=== PATIENT | female | born 1980 | race Caucasian/White ===

== ENCOUNTER 2021-06-08 20:22 | Emergency (ER) | payer MEDICAID ==
[~2021-06-08] VITALS: Ht 157.5 cm; Wt 69.4 kg
[2021-06-08 20:30] VITALS: BP 124/90
--- NOTE | 2021-06-08 20:33 | NUR ---
TO LOBBY A/W BED AMBULATORY
--- NOTE | 2021-06-08 21:12 | NUR ---
PT AMBULATED TO BED 05.
--- NOTE | 2021-06-08 21:15 | NUR ---
PT BIB SELF FOR C/O VAGINAL AND PELVIC PAIN 10/10 X 1 DAY. PT REPORTS SHE HAS AN IUD, AND SHE CAN "SEE THE STRING" WHICH PT REPORTS IS NOT NORMAL. PT REPORTS LIGHT VAGINAL BLEEDING X 1 MONTH. PT DENIES S/SX OF UTI. PT REPORTS HX OF FIBOIDS. DENIES N/V/D, FEVER, CHILLS, CP OR SOB. HX: FIBROIDS ALLERGIES: RANITIDINE
--- NOTE | 2021-06-08 21:59 | NUR ---
Patient being evaluated by physician at bedside.
[2021-06-08 22:33] LABS: APPEARANCE,URINE CLEAR (CLEAR); BILIRUBIN,URINE NEGATIVE (NEGATIVE); BLOOD, URINE 3+ (NEGATIVE); COLOR,URINE YELLOW (YELLOW); LEUKOCYTE ESTERASE ,URINE TRACE (NEGATIVE); NITRITE, URINE NEGATIVE (NEGATIVE); PH,URINE 5.5 (5.0-9.0); UGLUCOSE NEGATIVE (NEGATIVE)
[2021-06-08] MEDS ORDERED: KETOROLAC 60 MG/2 ML VIAL IM ONE (22:40)
[2021-06-08 22:47] LABS: RBC,URINE 0-5 /HPF (0-5); WBC,URINE 0-5 /HPF (0-5)
[2021-06-08 22:59] VITALS: BP 114/64
[2021-06-08] MEDS ORDERED: cefTRIAXone 1,000 MG in LIDOCAINE MPF 1% 2.1 ML IM ONE (23:00)
[2021-06-08] MEDS ORDERED: cefTRIAXone 1,000 MG VIAL ONE (23:10)
[2021-06-08] MEDS ORDERED: LIDOCAINE MPF 1% 5 ML ONE (23:10)
--- NOTE | 2021-06-08 23:23 | NUR ---
Patient appears to be resting comfortably in bed. Vital Signs within normal limits. Respirations even and unlabored. BLANKET PROVIDED FOR COMFORT.
--- NOTE | 2021-06-08 23:33 | NUR ---
ULTRASOUND AT BEDSIDE.
--- NOTE | 2021-06-09 01:15 | NUR ---
Female [employer] accompanied female patient for Pelvic Exam. PT TOLERATED PROCEDURE WELL.
[2021-06-09] MEDS ORDERED: CEPH-588 PO (01:23)
== END 2021-06-09 01:37 | disposition home or self-care (01) ==
LOC: MED 20:22
DX: N39.0 Urinary tract infection, site not specified (principal); N93.9 Abnormal uterine and vaginal bleeding, unspecified; Z88.8 Allergy status to other drugs, medicaments and biological substances
CPT/HCPCS: 76856; 81001; 81025; 87086; 96372; 99284; J0696; J1885; J2001

== ENCOUNTER 2024-04-08 18:54 | Emergency (ER) | payer MEDICAID, OTHER ==
[~2024-04-08] VITALS: Ht 157.5 cm; Wt 63.5 kg
[~2024-04-08 18:54] MED LIST: CEPH-588 PO
[2024-04-08 18:56] VITALS: BP 110/70; PULSE 65; RESP 18; TEMP 97.4; O2SAT 96
[2024-04-08 19:52] LABS: ANION GAP 11.1 (8-16); CARBON DIOXIDE 27.4 mmol/L (21-32); CREATININE 0.7 mg/dL (0.6-1.3); POTASSIUM 3.5 mmol/L (3.5-5.1)
[2024-04-08 19:59] LABS: ALBUMIN 3.6 g/dL (3.4-5.0); BILIRUBIN,DIRECT 0.1 mg/dL (0.0-0.3); TOTAL BILIRUBIN 0.2 mg/dL (0.0-1.0); TOTAL PROTEIN, SERUM 7.2 g/dL (6.4-8.2)
[2024-04-08 20:30] LABS: BASOPHILS # (AUTO) 0.1 K/uL (0.00-0.22); BASOPHILS % (AUTO) 0.8 % (0.0-2.0); EOSINOPHILS # (AUTO) 0.2 K/uL (0-0.4); EOSINOPHILS % (AUTO) 2.6 % (0.0-4.0); HEMATOCRIT 34.2 % (36-48); HEMOGLOBIN 11.2 g/dL (12.0-16.0); LYMPHOCYTES % (AUTO) 25.3 % (20.5-51.1); MEAN CORPUSCULAR HEMOGLOBIN 23 pg (27-31); MEAN CORPUSCULAR HGB CONC 33 g/dL (33-37); MEAN CORPUSCULAR VOLUME 71.5 fL (80-94); MONOCYTES # (AUTO) 0.6 K/uL (0.8-1.0); MONOCYTES % (AUTO) 8.1 % (1.7-9.3); NEUTROPHILS # (AUTO) 4.9 K/uL (1.8-7.7); NEUTROPHILS % (AUTO) 63.2 % (42.2-75.2); PLATELET COUNT (AUTO) 127 K/uL (140-450); RED BLOOD CELL COUNT(AUTO) 4.79 MIL/uL (4.20-5.40); RED CELL DISTRIBUTION WIDTH 17.2 % (11.6-13.7); WHITE BLOOD COUNT (AUTO) 7.7 K/uL (4.8-10.8)
[2024-04-08 21:43] LABS: APPEARANCE,URINE CLEAR (CLEAR); BILIRUBIN,URINE NEGATIVE (NEGATIVE); BLOOD, URINE TRACE-I (NEGATIVE); COLOR,URINE YELLOW (YELLOW); LEUKOCYTE ESTERASE ,URINE NEGATIVE (NEGATIVE); NITRITE, URINE NEGATIVE (NEGATIVE); PROTEIN,URINE NEGATIVE (NEGATIVE); UGLUCOSE NEGATIVE (NEGATIVE); UROBILINOGEN,URINE 0.2 EU/dL (0.2 - 1)
[2024-04-08] MEDS ORDERED: METR-435 PO (22:35)
[2024-04-08] MEDS ORDERED: NAPR-337 PO (22:35)
[2024-04-08 23:02] VITALS: BP 106/69; PULSE 71; RESP 16; TEMP 97.4; O2SAT 99
== END 2024-04-08 23:02 | disposition home or self-care (01) ==
LOC: MED 18:54
DX: N76.0 Acute vaginitis (principal); B96.89 Other specified bacterial agents as the cause of diseases classified elsewhere; N93.8 Other specified abnormal uterine and vaginal bleeding; Z79.899 Other long term (current) drug therapy; Z88.8 Allergy status to other drugs, medicaments and biological substances
CPT/HCPCS: 36415; 76830; 80048; 80076; 81003; 81025; 83690; 85025; 87210; 99284; Q0092

== ENCOUNTER 2024-07-20 18:20 | Emergency (ER) | payer OTHER ==
[~2024-07-20] VITALS: Ht 157.5 cm; Wt 70.3 kg
[~2024-07-20 18:20] MED LIST changes: +METR-435 PO; +NAPR-337 PO
[2024-07-20 18:38] VITALS: BP 106/60; PULSE 91; RESP 18; TEMP 98.1; O2SAT 100
--- NOTE | 2024-07-20 19:09 | NUR ---
PT AMB TO BED 4
[2024-07-20 19:17] LABS: BASOPHILS # (AUTO) 0.1 K/uL (0.00-0.22); BASOPHILS % (AUTO) 1.2 % (0.0-2.0); EOSINOPHILS # (AUTO) 0.2 K/uL (0-0.4); EOSINOPHILS % (AUTO) 1.6 % (0.0-4.0); HEMATOCRIT 24.2 % (36-48); HEMOGLOBIN 7.7 g/dL (12.0-16.0); LYMPHOCYTES # (AUTO) 2.2 K/uL (2.5-16.5); LYMPHOCYTES % (AUTO) 23.4 % (20.5-51.1); MEAN CORPUSCULAR HEMOGLOBIN 26 pg (27-31); MEAN CORPUSCULAR HGB CONC 32 g/dL (33-37); MEAN CORPUSCULAR VOLUME 81.8 fL (80-94); MONOCYTES # (AUTO) 0.8 K/uL (0.8-1.0); MONOCYTES % (AUTO) 8.1 % (1.7-9.3); NEUTROPHILS # (AUTO) 6.2 K/uL (1.8-7.7); NEUTROPHILS % (AUTO) 65.7 % (42.2-75.2); PLATELET COUNT (AUTO) 172 K/uL (140-450); RED BLOOD CELL COUNT(AUTO) 2.96 MIL/uL (4.20-5.40); RED CELL DISTRIBUTION WIDTH 21.1 % (11.6-13.7); WHITE BLOOD COUNT (AUTO) 9.5 K/uL (4.8-10.8)
[2024-07-20 19:21] VITALS: O2SAT 100
[2024-07-20 19:24] LABS: ANION GAP 11.4 (8-16); CALCIUM 8.2 mg/dL (8.5-10.1); CARBON DIOXIDE 26.4 mmol/L (21-32); CREATININE 0.5 mg/dL (0.6-1.3); POTASSIUM 3.8 mmol/L (3.5-5.1)
--- NOTE | 2024-07-20 19:24 | NUR ---
PT C/O EXCESSIVE VAGINAL BLEEDING AND PASSING LARGE CLOTS X 3 WEEEKS. STATES NO PAIN. NO ISSUES URINATING OR HAVING BOWEL MOVEMENTS. NO C/O SOB
[2024-07-20] MEDS: IBUPROFEN 600 MG TAB PO ONE (19:27)
[2024-07-20 20:09] LABS: BILIRUBIN,URINE NEGATIVE (NEGATIVE); BLOOD, URINE 3+ (NEGATIVE); COLOR,URINE YELLOW (YELLOW); LEUKOCYTE ESTERASE ,URINE NEGATIVE (NEGATIVE); NITRITE, URINE NEGATIVE (NEGATIVE); PH,URINE 8.5 (5.0-9.0); PROTEIN,URINE 2+ (NEGATIVE); UGLUCOSE NEGATIVE (NEGATIVE)
[2024-07-20 20:23] LABS: APPEARANCE,URINE HAZY (CLEAR)
[2024-07-20 20:36] LABS: RBC,URINE 50-80 /HPF (0-5)
[2024-07-20 20:37] LABS: BACTERIA,URINE 1+ /HPF (None Seen); MUCUS,URINE None Seen /LPF (None Seen); SQUAMOUS EPITHELIAL CELL,UR 4-10 (MOD) /LPF (0-3 (FEW)); WBC,URINE 0-5 /HPF (0-5)
[2024-07-20] MEDS ORDERED: FERR-147 PO (20:37)
[2024-07-20] MEDS ORDERED: ONDA-188 SL (20:37)
[2024-07-20] MEDS ORDERED: MEDR5TAB PO (20:37)
[2024-07-20] MEDS ORDERED: NITR100C7 PO (20:41)
[2024-07-20 20:51] VITALS: BP 106/60; PULSE 91; RESP 18; TEMP 98.1; O2SAT 100
--- NOTE | 2024-07-20 20:52 | NUR ---
Patient discharged with v/s stable. Written and verbal after care instructions given and explained. Patient verbalized understanding. Ambulatory with steady gait. All questions addressed prior to discharge. Advised to follow up with PMD.
== END 2024-07-20 20:51 | disposition home or self-care (01) ==
LOC: MED 18:20
DX: N93.8 Other specified abnormal uterine and vaginal bleeding (principal); D64.9 Anemia, unspecified; R30.0 Dysuria; Z79.899 Other long term (current) drug therapy; Z88.8 Allergy status to other drugs, medicaments and biological substances
CPT/HCPCS: 36415; 80048; 81001; 81025; 85025; 99283; 99284